=== PATIENT | female | born 1950 | race Caucasian/White ===

== ENCOUNTER 2020-05-05 11:11 | Outpatient (CLI) | payer MEDICARE, SELFPAY ==
--- NOTE | 2020-05-05 11:22 | MM_ITS ---
WS: [id number] BILATERAL SCREENING DIGITAL MAMMOGRAM WITH CAD HISTORY: SCREENING COMPARISON: 04/02/2019, 02/21/2019 and 02/13/2018 Bilateral CC and MLO views submitted. Computer aided detection analyzed. Breast composition: The breasts are heterogeneously dense, which may obscure small masses. No suspici ous masses, microcalcifications or architectural distortion. Bilateral asymmetries and calcifications are stable. MM/[id number] IMPRESSION: BI-RADS: 2-Benign FOLLOW UP: 1 Year Follow-up
== END 2020-05-05 11:12 | disposition home or self-care (01) ==
PROVIDERS: PCP Physician Assistant Medical; Visit Provider Physician Assistant Medical
DX: Z12.31 Encounter for screening mammogram for malignant neoplasm of breast (principal)
CPT/HCPCS: 77067

== ENCOUNTER 2021-05-10 08:12 | Outpatient (CLI) | payer MEDICARE, SELFPAY ==
--- NOTE | 2021-05-10 08:46 | MM_ITS ---
WS: [id number] BILATERAL SCREENING DIGITAL MAMMOGRAM WITH CAD HISTORY: SCREENING COMPARISON: 05/05/2020 and 02/21/2019 Bilateral CC and MLO views submitted. Computer aided detection analyzed. Breast composition: The breasts are heterogeneously dense, which may obscure small masses. No suspici ous masses, microcalcifications or architectural distortion. Benign scattered calcifications in each breast. MM/[id number] IMPRESSION: BI-RADS: 2-Benign FOLLOW UP: 1 Year Follow-up
== END 2021-05-10 08:13 | disposition home or self-care (01) ==
LOC: RADSHAW 08:16
PROVIDERS: PCP Physician Assistant Medical; Visit Provider Physician Assistant Medical
DX: Z12.31 Encounter for screening mammogram for malignant neoplasm of breast (principal)
CPT/HCPCS: 77067

== ENCOUNTER → 2021-12-05 10:52 | Outpatient (BNVA) | payer MEDICARE, SELFPAY | PROVIDERS: PCP Physician Assistant Medical; Referring Provider Registered Nurse; Visit Provider Surgery | DX: K63.5 Polyp of colon (principal) | CPT/HCPCS: 99203 ==

== ENCOUNTER 2022-01-11 08:27 | Day surgery (SDC) | payer MEDICARE, SELFPAY ==
[2022-01-09 12:13] VITALS: BMI 27.8
[2022-01-11 08:49] VITALS: BP 126/91; PULSE 89; RESP 18; TEMP 36.1; O2SAT 93
[2022-01-11] MEDS: sodium chloride 0.9% 1,000 ML 30 ML IV (08:58)
--- NOTE | 2022-01-11 09:28 | P.HP_ITS ---
Same Day Surgery H&P Indication for Procedure/HPI DATE OF PROCEDURE: January 11, 2022 CHIEF COMPLAINT/INDICATIONFOR SURGICAL PROCEDURE: colonoscopy for polyps PREOP DIAGNOSIS: diagnostic PLANNED PROCEDURE: Operation Date: 01/11/22 10:15 Proposed Procedures p Colonoscopy 96300/z12.11(Not Applicable) - Rivera Boudreaux MD Medications/Allergies* Home Medications Medication Instructions Recorded Confirmed Type alendronate 70 mg tablet 70 mg PO .WEEKLY 12/05/21 01/11/22 History aspirin 81 mg tablet,delayed 81 mg PO DAILY 12/05/21 01/11/22 History release (Adult Aspirin Regimen) calcium carbonate 600 mg calcium 600 mg PO BID 12/05/21 01/11/22 History (1,500 mg) tablet (Calcium) escitalopram oxalate 20 mg tablet 20 mg PO DAILY 12/05/21 01/11/22 History lisinopril 10 mg tablet 10 mg PO DAILY 12/05/21 01/11/22 History oxybutynin chloride 5 mg tablet 5 mg PO DAILY PRN 12/05/21 01/11/22 History pravastatin 40 mg tablet 40 mg PO DAILY 12/05/21 01/11/22 History propafenone 225 mg 225 mg PO Q12H 12/05/21 01/11/22 History capsule,extended release 12 hr Allergies/Adverse Reactions Allergy/AdvReac Type Severity Reaction Status Date / Time No Known Allergies Allergy Unverified 01/11/22 08:52 Current Medications: Generic Name Dose Route Start Last Admin Trade Name Freq PRN Reason Stop Dose Admin Sodium Chloride 1,000 mls @ 30 mls/hr 01/11/22 08:45 01/11/22 08:58 Sodium Chloride 0.9% IV 01/12/22 08:44 30 mls/hr .Q24H WILLIE Administration Pertinent History/Comorbid Conditions* Medical History (Updated 12/05/21 @ 12:07 by Rivera Boudreaux MD) Colon polyps Surgical History (Updated 12/05/21 @ 11:10 by Rivera Boudreaux MD) H/O oophorectomy History of cholecystectomy Status post colonoscopy Social History Smoking and tobacco status: never smoked Pertinent Exam Findings alert, oriented x 3 and regular rate & rhythm Recommendations Surgery/Procedure today Coding Level of Care Code Acute [employer] Super[employer] for [employer]
--- NOTE | 2022-01-11 09:30 | ANES.PREANE2 ---
Pre-Anesthetic Assessment Height/Weight: Height 1.63 m Weight 73.482 kg Temp Pulse Resp BP Pulse Ox 97.0 F L 89 18 126/91 93 01/11/22 08:49 01/11/22 08:49 01/11/22 08:49 01/11/22 08:49 01/11/22 08:49 Preop Diagnosis: diagnostic Operation Date: 01/11/22 10:15 Proposed Procedures p Colonoscopy 53831/z12.11(Not Applicable) - Rivera Boudreaux MD Familial anesthetic complications: No family hx of anesthesia complications Per patient very slow to recover after cataract surgery. Slept two days. She has not had this problem with prior endoscopic procedures. Was Beta Zeina taken within 24 hours: N/A Was Clonidine taken within 24 hours: N/A Last intake: Intake Last Liquid Date 01/10/22 Last Liquid Time 21:00 Last Solid Date 01/09/22 Last Solid Time 19:00 Social No alcohol and No tobacco Exam alert, oriented x 3, clear to auscultation bilaterally and regular rate & rhythm Airway Submandibular: within normal limits Cervical ROM: within normal limits Mallampati: Class II Dentition: chipped Pulmonary None reported CV/HEM Arrythmia (Hx of SVT well controlled on propefenone ) and Hypertension METS > 4. Able to clean her Air B&Bs without difficulty. None reported Hepatic None reported GI None reported Metabolic None reported Musc/skel None reported Neuropsych None reported Anesthetic Plan ASA status: 2 Anesthesia: Anesthesia Evaluation and MAC Other: I discussed with the patient risks, goals, and benefits of MAC and general anesthesia. We discussed spectrum of MAC anesthesia including conversion to general as well as possibility of recall of intraoperative stimuli including discomfort/pain. Patient agrees to proceed with MAC. Plan propofol based anesthetic, minimize other adjuncts in order to reduce risk of delayed return to baseline patient experienced after cataract surgery at outside facility. Risk of > 500 ml blood loss (7ml/kg in children): No Medications/Allergies Home Medications Medication Instructions Recorded Confirmed Last Taken Type alendronate 70 mg tablet 70 mg PO .WEEKLY 12/05/21 01/11/22 01/10/22 History aspirin 81 mg tablet,delayed 81 mg PO DAILY 12/05/21 01/11/22 01/10/22 History release (Adult Aspirin Regimen) calcium carbonate 600 mg calcium 600 mg PO BID 04/01/11/22 01/10/22 History (1,500 mg) tablet (Calcium) escitalopram oxalate 20 mg tablet 20 mg PO DAILY 12/05/21 01/11/22 01/10/22 History lisinopril 10 mg tablet 10 mg PO DAILY 12/05/21 01/11/22 01/10/22 History oxybutynin chloride 5 mg tablet 5 mg PO DAILY PRN 12/05/21 01/11/22 01/10/22 History pravastatin 40 mg tablet 40 mg PO DAILY 12/05/21 01/11/22 01/10/22 History propafenone 225 mg 225 mg PO Q12H 12/05/21 01/11/22 01/11/22 History capsule,extended release 12 hr Allergies Allergy/AdvReac Type Severity Reaction Status Date / Time No Known Allergies Allergy Unverified 01/11/22 08:52 Current Medications Generic Name Dose Route Start Last Admin Trade Name Freq PRN Reason Stop Dose Admin Sodium Chloride 1,000 mls @ 30 mls/hr 01/11/22 08:45 01/11/22 08:58 Sodium Chloride 0.9% IV 01/12/22 08:44 30 mls/hr .Q24H WILLIE Administration PFSH Anesthesia Medical History Colon polyps Surgical History H/O oophorectomy History of cholecystectomy Status post colonoscopy Social History Smoking and tobacco status: never smoked Data Anesthesia Cardiac Studies: No Data to Display
[2022-01-11 10:50] VITALS: BP 99/79; PULSE 67; RESP 18; TEMP 36.5; O2SAT 96
[2022-01-11 11:07] VITALS: BP 130/82; PULSE 60; RESP 18; TEMP 36.5; O2SAT 94
--- NOTE | 2022-01-11 14:23 | ANE.PACU2 ---
Inpatient post-anesthesia follow up: Airway intact: Yes Vital signs: Temperature 97.7 F Pulse Rate 60 Respiratory Rate 18 Blood Pressure 130/82 Pulse Oximetry 94 Oxygen Delivery Me thod Room Air Oxygen Flow Rate Fraction of Inspir ed Oxygen Hydration adequate: Yes Nausea and vomiting: No Pain level: 1 Mental status: Baseline
== END 2022-01-11 11:19 | disposition home or self-care (01) ==
PROVIDERS: PCP Family Medicine; Visit Provider Surgery
PROC: 0DJD8ZZ Inspection of Lower Intestinal Tract, Via Natural or Artificial Opening Endoscopic (ICD-10-PCS; CPT 45378; principal; 2022-01-11 10:15)
DX: Z12.11 Encounter for screening for malignant neoplasm of colon (principal); D12.4 Benign neoplasm of descending colon; K57.30 Diverticulosis of large intestine without perforation or abscess without bleeding; K64.8 Other hemorrhoids; Z79.82 Long term (current) use of aspirin
CPT/HCPCS: 45385; 88305; J2704; J7030

== ENCOUNTER → 2022-02-07 09:36 | Outpatient (BNVA) | payer MEDICARE, SELFPAY | PROVIDERS: PCP Family Medicine; Visit Provider Surgery | DX: Z09 Encounter for follow-up examination after completed treatment for conditions other than malignant neoplasm (principal) | CPT/HCPCS: 99212 ==

== ENCOUNTER 2022-05-23 12:25 | Outpatient (CLI) | payer MEDICARE, SELFPAY ==
--- NOTE | 2022-05-23 12:49 | MM_ITS ---
WS: [id number] BILATERAL 3D TOMOSYNTHESIS DIGITAL SCREENING MAMMOGRAPHY WITH CAD CLINICAL INFORMATION: SCREENING HISTORY: Screening mammogram. No current complaints. COMPARISON: May 10, 2021 TECHNIQUE: Bilateral CC and MLO views. FINDINGS: The breasts are composed of heterogeneous fibroglandular density tissue, which can limit the detectio n of small underlying mass lesions. No suspicious mass, asymmetry, calcifications, or architectural d istortion. No evidence of malignancy. Stable bilateral incidental punctate and coarse calcifications. MM/[place] [id number] IMPRESSION: BI-RADS: 2-Benign FOLLOW UP: 1 Year Follow-up Recommend return to annual screening mammography.
== END 2022-05-23 12:26 | disposition home or self-care (01) ==
LOC: RAD 12:27
PROVIDERS: PCP Family Medicine; Visit Provider Family Medicine
DX: Z12.31 Encounter for screening mammogram for malignant neoplasm of breast (principal)
CPT/HCPCS: 77063; 77067

== ENCOUNTER 2023-06-01 12:58 | Outpatient (CLI) | payer MEDICARE, SELFPAY ==
--- NOTE | 2023-06-01 13:00 | MM_ITS ---
WS: [id number] SCREENING DIGITAL BREAST TOMOSYNTHESIS MAMMOGRAM WITH CAD HISTORY: SCREENING COMPARISON: 05/23/2022, 05/10/2021 and 05/05/2020 Bilateral CC and MLO with tomosynthesis and synthetic mammography submitted. Computer aided detection analyzed. Breast composition: The breasts are heterogeneously dense, which may obscure small masses. Lobulated mass central RIGHT breast near 9:00 measures 11 x 7 mm. Margins are partially obscured. This is withi n an area of dense fibroglandular tissue. Additional imaging necessary to determine if this is a mass or dense tissue. There are benign calcifications in each breast. IMPRESSION: MM/[place] [id number] BI-RADS: 0-Incomplete: Need additional imaging evaluation FOLLOW UP: Need Additional Imaging RIGHT breast: Spot compression views (CC and MLO). True ML. Ultrasound to follo w if abnormality persists.
== END 2023-06-01 12:59 | disposition home or self-care (01) ==
LOC: MOBLMAM 13:04
PROVIDERS: PCP Family Medicine; Visit Provider Family Medicine
DX: Z12.31 Encounter for screening mammogram for malignant neoplasm of breast (principal)
CPT/HCPCS: 77063; 77067

== ENCOUNTER 2023-07-09 09:36 | Outpatient (CLI) | payer MEDICARE, SELFPAY ==
--- NOTE | 2023-07-09 | MM_ITS ---
WS: [id number] ADDITIONAL VIEWS RIGHT MAMMOGRAM WITH DIGITAL BREAST TOMOSYNTHESIS. RIGHT BREAST ULTRASOUND HISTORY: ABNORMAL MAMMOGRAM OF R BREAST COMPARISON: 06/01/2023, 05/23/2022 and 05/10/2021 RIGHT MAMMOGRAM: Spot compression views and true ML with digital breast tomosynthesis and SM. Mass is reidentified in the lateral RIGHT breast near 8-9 o'clock measuring 11 x 8 x 10 mm. This mass is at a middle depth needs to be evaluated by ultrasound. RIGHT BREAST ULTRASOUND 2-D and color Doppler imaging submitted. Ultrasound directed to 8:00 demonstrates a slightly complex cystic mass measuring 1.1 x 0.8 x 0.5 cm. No increased vascularity. This may be a small lymph node or complex cyst. This does correspond to th e mammographic abnormality. IMPRESSION: MM/[place] [id number] BI-RADS: 3-Probably Benign FOLLOW UP: 6 Month Follow-up Recommend ultrasound follow-up of the RIGHT breast complex cyst versus lymph no de at 8:00.
--- NOTE | 2023-07-09 09:44 | US_ITS ---
WS: [id number] ADDITIONAL VIEWS RIGHT MAMMOGRAM WITH DIGITAL BREAST TOMOSYNTHESIS. RIGHT BREAST ULTRASOUND HISTORY: ABNORMAL MAMMOGRAM OF R BREAST COMPARISON: 06/01/2023, 05/23/2022 and 05/10/2021 RIGHT MAMMOGRAM: Spot compression views and true ML with digital breast tomosynthesis and SM. Mass is reidentified in the lateral RIGHT breast near 8-9 o'clock measuring 11 x 8 x 10 mm. This mass is at a middle depth needs to be evaluated by ultrasound. RIGHT BREAST ULTRASOUND 2-D and color Doppler imaging submitted. Ultrasound directed to 8:00 demonstrates a slightly complex cystic mass measuring 1.1 x 0.8 x 0.5 cm. No increased vascularity. This may be a small lymph node or complex cyst. This does correspond to th e mammographic abnormality. IMPRESSION: US/US breast RT limited* [id number] BI-RADS: 3-Probably Benign FOLLOW UP: 6 Month Follow-up Recommend ultrasound follow-up of the RIGHT breast complex cyst versus lymph no de at 8:00.
== END 2023-07-09 09:37 | disposition home or self-care (01) ==
LOC: RAD 09:37
PROVIDERS: PCP Family Medicine; Visit Provider Family Medicine
DX: R92.8 Other abnormal and inconclusive findings on diagnostic imaging of breast (principal)
CPT/HCPCS: 76642; 77061; 77065; G0279

== ENCOUNTER → 2023-07-16 07:53 | Outpatient (BNVA) | payer MEDICARE, SELFPAY | PROVIDERS: PCP Family Medicine; Visit Provider Nurse Practitioner Family | DX: L71.0 Perioral dermatitis (principal); L40.8 Other psoriasis; L82.0 Inflamed seborrheic keratosis; L72.0 Epidermal cyst; L57.8 Other skin changes due to chronic exposure to nonionizing radiation; D22.4 Melanocytic nevi of scalp and neck; L82.1 Other seborrheic keratosis | CPT/HCPCS: 17110; 99204 ==

== ENCOUNTER 2023-12-31 09:33 | Outpatient (CLI) | payer MEDICARE, SELFPAY ==
--- NOTE | 2023-12-31 10:15 | US_ITS ---
WS: [id number] ULTRASOUND RIGHT BREAST HISTORY: 6 month f/u COMPARISON: Ultrasound 07/09/2023 and mammogram 07/09/2023 TECHNIQUE: 2-D and Doppler. Ultrasound at 8:00, 2 cm from the nipple demonstrates a complex cystic mass measuring 1.1 x 0.8 x 0.6 cm which is similar to the prior study. No increased vascularity within the mass. US/US breast RT limited* [id number] IMPRESSION: BI-RADS: 2-Benign FOLLOW-UP: 1 Year Follow-up Stable cyst RIGHT breast. Recommend return to yearly screening mammography. [facility] screening mammogram should be in May 2024.
== END 2023-12-31 09:34 | disposition home or self-care (01) ==
LOC: RAD 09:34
PROVIDERS: PCP Family Medicine; Visit Provider Family Medicine
DX: R92.8 Other abnormal and inconclusive findings on diagnostic imaging of breast (principal)
CPT/HCPCS: 76642

== ENCOUNTER 2025-01-21 13:36 | Outpatient (CLI) | payer MEDICARE, SELFPAY ==
--- NOTE | 2025-01-21 13:40 | MM_ITS ---
WS: [id number] BILATERAL 3D TOMOSYNTHESIS DIGITAL SCREENING MAMMOGRAPHY WITH CAD CLINICAL INFORMATION: SCREENING HISTORY: Screening mammogram. No current complaints. COMPARISON: 2022 TECHNIQUE: Bilateral CC and MLO views. FINDINGS: The breasts are composed of heterogeneous fibroglandular density tissue, which can limit the detection of small underlying mass lesions. No suspicious mass, asymmetry, calcifications, or architectural distortion. No evidence of malignancy. Incidental punctate and lucent centered calcifications. MM/MM [facility] tomosynthesis [id number] IMPRESSION: DENSITY: The breasts are heterogeneously dense, which may obscure small masses. BI-RADS: 2 - Benign FOLLOW UP: 1 Year Follow-up Recommend return to annual screening mammography.
== END 2025-01-21 13:37 | disposition home or self-care (01) ==
LOC: MOBLMAM 13:39
PROVIDERS: PCP Family Medicine; Visit Provider Family Medicine
DX: Z12.31 Encounter for screening mammogram for malignant neoplasm of breast (principal); R92.333 Mammographic heterogeneous density, bilateral breasts; R92.1 Mammographic calcification found on diagnostic imaging of breast
CPT/HCPCS: 77063; 77067